=== PATIENT | male | born 1990 | race Caucasian/White ===

== ENCOUNTER 2019-01-11 17:23 | Emergency (ER) | payer OTHER ==
[2019-01-11 17:30] VITALS: BP 155/85
[2019-01-11 17:52] LABS: Urine Appearance Clear; Urine Bilirubin Negative (Negative); Urine Blood Negative (Negative); Urine Color Yellow; Urine Glucose Negative (Negative); Urine Ketones Trace (Negative); Urine Nitrite Negative (Negative); Urine Protein Negative (Negative); Urine Urobilinogen Negative (Negative)
== END 2019-01-11 19:50 | disposition left against medical advice (07) ==
LOC: ED 17:23
DX: R53.83 Other fatigue (principal); Z53.21 Procedure and treatment not carried out due to patient leaving prior to being seen by health care provider
CPT/HCPCS: 81003